=== PATIENT | female | born 1965 | race Caucasian/White ===

== ENCOUNTER 2019-03-10 16:33 | Observation (INO) | payer BC, OTHER, SELFPAY ==
[2019-03-10] MEDS ORDERED: FENTANYL CITR 100 MCG/2 ML ONE (18:16)
[2019-03-10] MEDS ORDERED: MIDAZOLAM HCL 2 MG/2 ML INJ ONE (18:16)
[2019-03-10] MEDS ORDERED: PROPOFOL 200 MG/20 ML VIAL IV ONE (18:16)
[2019-03-10] MEDS ORDERED: GLYCOPYRROLATE 0.2 MG/ML SYR ONE ×2 (18:17→19:30)
[2019-03-10] MEDS ORDERED: MORPHINE 10 MG/ML VIAL ONE (18:18)
[2019-03-10] MEDS ORDERED: NEOSTIGMINE 1 MG/ML -10 ML VIAL ONE (18:18)
[2019-03-10] MEDS ORDERED: LIDOCAINE 2% MPF 5 ML VIAL ONE (18:19)
[2019-03-10] MEDS ORDERED: ROCURONIUM 50 MG/5 ML VIAL IV ONE (18:19)
[2019-03-10] MEDS ORDERED: KETOROLAC 30 MG/ML INJ ONE (18:19)
[2019-03-10] MEDS ORDERED: ONDANSETRON 4 MG/2 ML VIAL ONE (18:32)
[2019-03-10] MEDS ORDERED: NA CHLORIDE 0.9% 1,000 ML IV SCH (19:00)
[2019-03-10] MEDS: NA CHLORIDE 0.9% 1,000 ML IV SCH ×2 (19:35→20:22)
--- NOTE | 2019-03-10 19:38 | P.BOP ---
Preoperative diagnosis: acute appendicitis, peritonitis Postoperative diagnosis: same Primary procedure: 1. Laparoscopic appendectomy Secondary procedure: 2. Open repair of incarcerated umbilical tender hernia Estimated blood loss: <5cc Specimen: kiya Findings: as above Anesthesia: General Complications: None Transferred to: Recovery Room Condition: Good
[2019-03-10] MEDS ORDERED: ONDANSETRON 4 MG/2 ML VIAL IV PRN (19:40)
[2019-03-10] MEDS ORDERED: SODIUM CHLORIDE 0.9% 10ML INJ IV PRN (19:40)
[2019-03-10] MEDS ORDERED: MORPHINE 2 MG/ML SYR IV PRN (19:40)
[2019-03-10] MEDS ORDERED: HYDROCODONE/APAP 5/325 MG TAB PO PRN (19:40)
[2019-03-10] MEDS ORDERED: Ringers Lactate 1,000 ML IV ONE (20:13)
[2019-03-10] MEDS ORDERED: NA CHLORIDE 0.9% 100 ML ONE (23:03)
[2019-03-10] MEDS ORDERED: CEFOXITIN SODIUM 1 GM/VIAL ONE (23:11)
[2019-03-10] MEDS: CEFOXITIN 1 GM in NA CHLORIDE 0.9% 100 ML IVPB SCH (23:28)
--- NOTE | 2019-03-11 00:39 | OP ---
Date of Procedure: 03/10/2019 Surgeon: Don Mccartney MD Preoperative Diagnosis: Acute appendicitis. Postoperative Diagnosis: Acute appendicitis, incarcerated umbilical hernia. Procedure: Laparoscopic appendectomy and open repair of incarcerated umbilical hernia. Anesthesia: General plus local. Specimen: Appendix and hernia sac. Indications: This is the case of a 53-year-old patient, who comes to us with above diagnosis. Fully explained the benefits, alternatives, and risks of laparoscopic, possible open, appendectomy which i nclude but not limited to infection, bleeding, damage to adjacent structures, anesthesia complication , [place], even . She also understands this might not relieve any symptoms and she might need more t velázquez one surgical intervention. She understood, signed a consent. Description Of Procedure: The patient was brought to the operating room, placed in supine position. Anesthesia was done without complication. Abdominal area was prepped and draped in a sterile fashio n. Marcaine 0.5% was injected for local anesthetic, followed by sharp incision of the skin in the in fraumbilical region. Once we opened that noticed the patient to have an incarcerated hernia with ome ntum. So we opened the hernia sac, reduced back the omentum after removing some adhesions, removed t he hernia sac. Extended incision on the fascia, placed Vicryl #1 inside the fascia. Seng trocar w as carefully introduced. Pneumoperitoneum was obtained. I placed two more trocars, 5 mm each one of them; one in the suprapubic area and another one in left lower quadrant using the same technique whi ch consisted of local anesthetic, sharp incision of the skin, and introduction of the trocars under d irect vision. This allowed me to visualize the area of the appendix. We created a window in the bas e of the appendix. It looked inflamed distally. So we created a window in the base of the appendix, transected that with Endo DAJUAN 45 mm 3.5 and the mesoappendix with an Endo DAJUAN 45 mm 2.5 sequentially . Appendix removed from the abdominal cavity using an EndoCatch through the umbilical incision. The area was inspected once again. No bowel leak, no bleeding; that was after irrigation and suction. At that moment, I proceeded to remove the trocars under direct vision. Deflated the pneumoperitoneum . Closed the fascia with #1 Vicryl and closed also the umbilical hernia with #1 Vicryl. Irrigated s ubcutaneous tissues, closed that with 3-0 chromic and skin with nahomi. Sponge count and instrument counts were correct. The patient tolerated the procedure well. The patient was sent to recovery in stable condition. KAMILAH/NEVAEH Voice ID: [id number] Report ID: [id number]
--- NOTE | 2019-03-11 05:04 | HP ---
Date of Admission: 03/10/2019 History Of Present Illness: This is an emergency. This is the case of a 53-year-old patient who graciela t to a local ER and diagnosed with acute appendicitis and sudden right lower quadrant pain. I was ca lled by Dr. Pereyra in [place] [facility] and asked to see if we can take care of this patient due to the emerge ncy situation. We transferred the patient to this institution. The patient still has pain since las t night, associated with nausea, vomiting, and bloating. She does remember having this pain before. She denies any dysuria, hematuria, hematochezia, or melena. Denies any recent traveling out of the country. Denies any family member sick at home. She is stating that she has no previous colonoscopi es before. She was explained the importance of colonoscopies even after the surgery in the next 3 or 4 weeks to rule out any malignancy and also part of the screening. Review of Systems: Ten points otherwise unremarkable. Medical History: None. Medications: None. Allergies: NONE. Social History: She does not smoke. She does drink alcohol. Family History: Noncontributory. Physical Examination: General: The patient is awake and alert. HEENT: Pupils are equal and reactive. Anicteric. Neck: Supple. Chest: Clear. Abdomen: Right lower quadrant tenderness with Rovsing sign and psoas sign positive. Breasts: Deferred. Rectal: Deferred. Pelvic: Deferred. Extremities: Good capillary refill. PRODUCT CRAFTSMAN: Cranial nerves 2 through 12 grossly within normal limits. Laboratory Data: WBC count was done in [place] and is 17. CAT scan suggesting acute appendicitis. Assessment: This is a 53-year-old patient with right lower quadrant acute abdominal pain with perito nitis. Diagnosed with CAT scan with acute appendicitis, leukocytosis. Patient was explained the nee d for emergent laparoscopic, possible open, appendectomy with benefits, alternatives, and risks inclu ding but not limited to infection, bleeding, damage to adjacent structures, anesthesia complication, negative appendix, myocardial infarction, and even . She also understands this might not reliev e any symptoms and she might need more than one surgical intervention. She was explained the importa nce of being compliant with having a colonoscopy done in the next few weeks and also advised scottyan ce of mammograms. She was advised also to follow with her primary doctor. HM/NEVAEH Voice ID: [id number]
[2019-03-11] MEDS: CEFOXITIN 1 GM in NA CHLORIDE 0.9% 100 ML IVPB SCH (05:11)
[2019-03-11] MEDS: NA CHLORIDE 0.9% 1,000 ML IV SCH (05:12)
[2019-03-11] MEDS ORDERED: NA CHLORIDE 0.9% 100 ML ONE (05:13)
[2019-03-11 06:01] LABS: Phosphorus 3.6 mg/dL (2.5-4.9); Potassium 4.6 mmol/L (3.5-5.1)
[2019-03-11 06:06] LABS: Urine Appearance CLEAR; Urine Bilirubin NEGATIVE (NEG); Urine Blood 1+ (NEG); Urine Color YELLOW; Urine Glucose NEGATIVE (NEG); Urine Protein NEGATIVE (NEG); Urine Specific Gravity >=1.030 (1.005-1.030); Urine Urobilinogen 0.2 mg/dL (0.2-1.0); Urine pH 5.5 (5.0-7.0)
[2019-03-11 06:07] LABS: Absolute Lymphocytes (CBC) 1.5 K/uL (0.7-4.9); Eosinophils % 1.6 % (0-4.4); Hematocrit 36.2 % (36.0-45.0); Lymphocytes % 17.6 % (15.3-44.8); MPV 8.2 fL (7.6-11.3); Monocytes % 8.4 % (3.3-12.3); RBC Red Blood Cell Count 3.85 M/uL (3.86-4.86)
[2019-03-11 06:08] LABS: Urine Microscopic Reflex ORDER UMIC
[2019-03-11 06:21] LABS: Urine Bacteria <20 /HPF (<20); Urine Culture Reflex Order NOT NEEDED
[2019-03-11] MEDS ORDERED: PANTOPRAZOLE 40 MG INJ IVP SCH (09:00)
[2019-03-11] MEDS ORDERED: CEFOXITIN/SWI 1gm 1 GM/10 ML SYR IV SCH (12:00)
== END 2019-03-11 10:18 | disposition home or self-care (01) ==
LOC: 2ND 17:27 → INTOOBSV 17:27
PROVIDERS: ADMIT Surgery; ATTEND Surgery
PROC: 0WQF0ZZ Repair Abdominal Wall, Open Approach (ICD-10-PCS; 2019-03-10)
PROC: 0DTJ4ZZ Resection of Appendix, Percutaneous Endoscopic Approach (ICD-10-PCS; principal; 2019-03-10 18:30)
DX: K35.80 Unspecified acute appendicitis (principal); K42.0 Umbilical hernia with obstruction, without gangrene; K66.0 Peritoneal adhesions (postprocedural) (postinfection); C18.1 Malignant neoplasm of appendix; F17.210 Nicotine dependence, cigarettes, uncomplicated
CPT/HCPCS: 36415; 80048; 81003; 81015; 83735; 84100; 85025; 88304; 88305; 88313; C9113; G0378; J0694; J2250; J2405; J2704; J2710; J3010; J7030